=== PATIENT | male | born 2005 | race Caucasian/White ===

== ENCOUNTER 2024-04-04 01:35 | Emergency (ER) | payer MEDICAID ==
[~2024-04-04] VITALS: Ht 175.3 cm; Wt 115.2 kg
[2024-04-04 01:47] VITALS: BP 155/88; RESP 18; TEMP 97.7; O2SAT 99
[2024-04-04 01:52] VITALS: PULSE 86; O2SAT 99
[2024-04-04] MEDS ORDERED: IBUP-2030 MT (02:55)
[2024-04-04] MEDS ORDERED: CYCL5TAB MT (02:55)
== END 2024-04-04 03:21 | disposition home or self-care (01) ==
LOC: ER 01:35
DX: S13.9XXA Sprain of joints and ligaments of unspecified parts of neck, initial encounter (principal); M54.50 Low back pain, unspecified; V49.40XA Driver injured in collision with unspecified motor vehicles in traffic accident, initial encounter; Y93.89 Activity, other specified; Y92.89 Other specified places as the place of occurrence of the external cause; Y99.8 Other external cause status
CPT/HCPCS: 99283